=== PATIENT | male | born 1970 | race American Indian/Alaskan Native ===

== ENCOUNTER 2021-10-31 15:00 | Inpatient (IN) | payer OTHER ==
[2021-10-31] MEDS ORDERED: Acetaminophen 325 MG Tab PO PRN (15:45)
[2021-10-31] MEDS ORDERED: Ondansetron 4 MG/2 ML SDV IVPUSH PRN (15:45)
[2021-10-31] MEDS ORDERED: Magnesium Hydroxide 400 MG/5 ML Susp 30 ML Cup PO PRN (15:45)
[2021-10-31] MEDS ORDERED: HYDROmorphone 0.5 MG/0.5 ML Syringe IVPUSH PRN (15:45)
[2021-10-31] MEDS ORDERED: Albuterol/Ipratropium 3.0-0.5 MG/3 ML Neb Soln NEB PRN (15:45)
[2021-10-31] MEDS ORDERED: Polyethylene Glycol 3350 Powder 17 GM Packet PO PRN (15:45)
[2021-10-31] MEDS: Albumin Human 25 GM in Premix Bag 1 BAG IV SCH ×2 (16:44→17:48)
[2021-10-31] MEDS ORDERED: Meropenem 500 MG in Sodium Chloride 0.9% 100 ML IV ONE (18:45)
[2021-10-31] MEDS ORDERED: Furosemide 100 MG in Sodium Chloride 0.9% 90 ML IV SCH (19:00)
[2021-10-31] MEDS ORDERED: Rifaximin 550 MG Tab PO SCH (21:00)
[2021-10-31] MEDS ORDERED: rOPINIRole 2 MG Tab PO SCH (21:00)
[2021-10-31] MEDS ORDERED: Meropenem 500 MG in Sodium Chloride 0.9% 100 ML IV SCH (21:00)
[2021-11-01] MEDS ORDERED: Non-Formulary Medication 1 Each (Spironolactone [Spironolactone] 50 MG Tablet) PO SCH (09:00)
[2021-11-01] MEDS ORDERED: Non-Formulary Medication 1 Each (Lactulose [Lactulose] 10 GM/15 ML Solution) PO SCH (09:00)
[2021-11-01] MEDS ORDERED: Patient's Own Medication 1 Each PO SCH (09:00)
[2021-11-01] MEDS ORDERED: Non-Formulary Medication 1 Each (Zinc Gluconate [Zinc] 50 MG Tablet) PO SCH (09:00)
[2021-11-01] MEDS ORDERED: Cholecalciferol (Vitamin D3) 25 MCG Tab PO SCH (09:00)
== END 2021-10-31 20:20 | disposition left against medical advice (07) | DRG 432 ==
LOC: UNDOADMIN 15:25 → DL.MS 15:25
PROVIDERS: ADMIT Internal Medicine; ATTEND Internal Medicine
DX: K70.40 Alcoholic hepatic failure without coma (principal); U07.1 COVID-19; R18.8 Other ascites; I13.0 Hypertensive heart and chronic kidney disease with heart failure and stage 1 through stage 4 chronic kidney disease, or unspecified chronic kidney disease; I50.32 Chronic diastolic (congestive) heart failure; M31.8 Other specified necrotizing vasculopathies; F10.10 Alcohol abuse, uncomplicated; E11.65 Type 2 diabetes mellitus with hyperglycemia; D64.9 Anemia, unspecified; D69.6 Thrombocytopenia, unspecified; E66.9 Obesity, unspecified; Z68.36 Body mass index [BMI] 36.0-36.9, adult; H54.7 Unspecified visual loss; N18.30 Chronic kidney disease, stage 3 unspecified; D63.8 Anemia in other chronic diseases classified elsewhere; K74.60 Unspecified cirrhosis of liver; G25.81 Restless legs syndrome; I35.1 Nonrheumatic aortic (valve) insufficiency; F32.9 Major depressive disorder, single episode, unspecified; F41.9 Anxiety disorder, unspecified; K57.90 Diverticulosis of intestine, part unspecified, without perforation or abscess without bleeding; G47.00 Insomnia, unspecified; Z86.19 Personal history of other infectious and parasitic diseases
CPT/HCPCS: 71045; P9047; U0002